=== PATIENT | female | born 1965 | race Caucasian/White ===

== ENCOUNTER 2018-07-07 05:59 | Inpatient (IN) | payer OTHER, SELFPAY ==
[2018-06-23 11:03] VITALS: BMI 39.9
[2018-06-23 12:45] VITALS: BMI 39.9
[2018-07-07] VITALS (13 sets, daily range): BP systolic 94–153; BP diastolic 45–93; PULSE 70–88; RESP 13–20; TEMP 35.6–36.9; O2SAT 96–100; BMI 39.9
--- NOTE | 2018-07-07 06:00 | DI.RAD.S_ITS ---
PROCEDURE: XR KNEE LT 1TO2V INDICATIONS: post-op TECHNIQUE: 2 view(s) of the knee acquired. COMPARISON: [facility], CR, XR KNEE ARTHRITIC SERIES BI, 06/16/2017, 14:23. CR, KNEE 1 OR 2VW (RT), 06/14/2008, 15:04. [facility], MR VISIONAIRNathalia LT KNEE, 06/05/2018, 7:17. FINDINGS: Bones: Patient is status post knee joint arthroplasty. Hardware components are in expected positions. Visualized bony structures are demonstrates small area of irregular lucency along the distal lateral aspect of the medial femoral condyle. Soft tissues: Overlying postoperative changes are noted. IMPRESSION: Postsurgical changes as above. Irregular lucency along the medial femoral condyle as above. Small area of avulsion cannot be excluded. Dictated by: Jen Preciado M.D. on 07/07/2018 at 15:45 Approved by: Jen Preciado M.D. on 07/07/2018 at 15:53
[2018-07-07] MEDS: LACTATED RINGERS 1,000 ML 42 ML IV ×3 (06:55→10:34)
[2018-07-07] MEDS: CELECOXIB 200 MG CAPSULE PO (07:00)
[2018-07-07] MEDS: PREGABALIN 75 MG CAPSULE PO (07:00)
[2018-07-07] MEDS: ACETAMINOPHEN 325 MG TABLET 975 MG PO ×2 (07:00→13:58)
[2018-07-07] MEDS: VANCOMYCIN 1,000 MG/200 ML FROZ.PIGGY 200 MG IV (07:01)
--- NOTE | 2018-07-07 07:58 | PM.PREOP ---
Pre-operative Note Interval Note Pre-op Check: Yes History & Physical Reviewed by Physician and Yes Exam Performed Changes: No
--- NOTE | 2018-07-07 08:00 | P.OP_ITS ---
Operative Date/Time/Diagnoses Date of procedure: 07/07/18 Time of procedure: 09:58 Pre-op diagnosis: left knee OA Post-op diagnosis: same Procedure & Clinicians Procedure: left total knee replacement Same procedure as scheduled: Yes Indications: The patient has had progressively worsening left knee pain with radiographic changes consistent with arthritis. Non-operative management has failed and the patient has requested total knee replacement. The risks, benefits and alternatives to surgery were discussed with the patient prior to proceeding. Risks discussed included, but were not limited to, failure to relieve pain, stiffness, infection, nerve damage, deep venous thrombosis, pulmonary embolism, stroke, coma, heart attack, permanent paralysis and , as well as the potential need for eventual revision of the prosthetic. Surgeon: Dafne Zuniga Cigar Packer And Shader: Suellen Covarrubias Anesthesia Type: Spinal and Peripheral nerve block Operative Notes Findings: Severe left knee osteoarthritis, acceptable alignment and good stability Closure Type: primary Specimen(s): none sent Implants & Drains: nayla BCS2 femur 3, tibia 3, +10, 32x9 Applied: drain(s) Estimated Blood Loss (mL): 200 Blood products transfused: none Tourniquet time (min): 89 Procedure in detail: The patient was seen in the pre-operative area, where the patient identified the left knee as the operative site and this was marked with my initials. The patient received pre-operative antibiotics, and was taken to the operating room and placed on the operative table in the supine position. After satisfactory anesthesia, a time study statistician out was performed. The left leg was encircled with a tourniquet about the proximal thigh, and the leg was prepared from the toes to the tourniquet with ChloroPrep in the usual fashion and draped through sterile drapes. The leg was elevated and exsanguinated with Eschmark bandage and the tourniquet inflated to [250] mmHg pressure. The knee was approached through an approximately 18 cm incision centered over the patella and carried into the knee through a medial parapatellar arthrotomy. A portion of the medial and lateral meniscus was resected. Soft tissue was carefully mobilized around the patella the patella was measured with a caliper. Bone was resected from the patella and the patellar height was reconstituted with up an appropriate sized patellar component. A cover was then placed on the patella. A small amount of additional medial and lateral meniscus was resected. The visionare guide fit well to the distal femur. It looked like an appropriate distal femoral cut and the cut was made without difficulty. The rotation was assessed and the appropriate size femoral guide was placed on the distal femur and finishing cuts were made. There was no evidence of notching. The anterior, posterior and chamfer cuts were then made. The posterior osteophytes and soft tissues were then removed. The posterior capsule was injected with part of a mixture of 60 ml 0.25% Marcaine mixed with 20 ml Exparel for post operative pain control. The remainder of this mixture was injected into the capsule and subcutaneous tissues during cement curing. The tibia was prepared and the visionaire guide fit well to the distal tibia. The rotation was assessed. The patient was placed in extension residual medial and lateral meniscus as well as any residual bone was carefully resected. No additional tibia was resected. Hemostasis was achieved especially posteriorly. Additional local was injected into the posterior capsule. The extension gap was assessed and additional releases for gap balancing were performed as necessary. It was checked with the gap airborne and air delivery specialist. The femoral component was trial was placed and the notch was finished. Trial tibial and femoral components were then placed and the knee placed through a range of motion. Range of motion was [ 0-130], with good stability throughout the range. The trials were then removed, and the tibia was finished. The bone was prepared with pulsatile lavage, and dried with a sponge. Cement was applied and the final prosthetics placed. Excess cement was removed during and after cement curing. A brief Betadine soak was performed. After confirming there was no extruded cement posteriorly, the final tibial insert was placed. The knee was copiously irrigated and the tourniquet deflated. Hemostasis was obtained with the [Aquamantys system]. A drain was placed and brought out superolaterally. The capsule was closed with interrupted nonabsorbable sutures. The subcutaneous layer was closed with barbed sutures, and the skin with a running 3 -0 V-Lock suture and Surgical glue. An silvia dressing was applied and the patient was taken to recovery having tolerated the procedure well. Complications: none Condition: stable Disposition: Acute Care Plan for aftercare: The patient will be maintained on a standard total knee replacement protocol with weight bearing as tolerated. The patient will receive aspirin and sequential compression devices for DVT prophylaxis. The patient will be discharged home when safe for the home environment.
[2018-07-07] MEDS: MIDAZOLAM 2 MG/2 ML VIAL IV (08:05)
[2018-07-07] MEDS: fentaNYL 100 MCG/2 ML INJ IV (08:05)
[2018-07-07] MEDS: CEFAZOLIN 2 GM/100 ML FROZ.PIGGY IV ×3 (08:15→23:21)
--- NOTE | 2018-07-07 08:15 | SUR.PREOP ---
Block start time 0805[] . Monitoring initiated and maintained throughout procedure. Oxygen and medications given per anesthesiologist instructions. Patient remained stable throughout procedure, no adverse reactions noted. Block end time [0810].
--- NOTE | 2018-07-07 08:54 | SUR.OPER ---
Supine on padded OR bed. Pillow under head, arms secured on padded armboards <90 degree abduction. Safety belt across torso. Non-operative leg secured with tape over blanket over lower leg. Operative leg secured in DeMayo/David positioner. Foam padded brace at thigh of operative leg.
[2018-07-07] MEDS: BUPIVACAINE LIPOSOME 266 MG/20 ML VIAL INJ (09:13)
[2018-07-07] MEDS: POVIDONE-IODINE 15 ML, SODIUM CHLORIDE 0.9% 250 ML TOP (09:13)
[2018-07-07] MEDS: BUPIVACAINE 0.25% W/ EPI VIAL 60 ML INJ (09:14)
[2018-07-07] MEDS: TRANEXAMIC ACID 1,000 MG VIAL 1000 MG INJ (09:15)
[2018-07-07] MEDS: LACTATED RINGERS 1,000 ML 125 ML IV ×2 (12:24→21:29)
[2018-07-07] MEDS: OXYCODONE IR 5 MG TABLET PO (13:07)
[2018-07-07] MEDS: IBUPROFEN 600 MG TABLET PO ×2 (13:51→23:21)
[2018-07-07] MEDS: HYDROMORPHONE 2 MG TABLET 4 MG PO ×2 (14:53→18:20)
--- NOTE | 2018-07-07 15:08 | PC.NURSE ---
Day Shift- Rec'd report from MONIKA Yip in PACU at 1115. Pt arrived to unit at 1125 via bed. A&OX4, numbness to LE, able to slightly wiggle toes. Starting at 1310, pain increased rapidly from 0/10 to 7-8/10 and teary. Oxycodone prn at 1310, pt states with her last surgery the combination of Oxycodone and Ibuprofen was effective pain management. Therefore Ibuprofen given at 1350 along with scheduled Tylenol. Received call from Crystal Covarrubias at 1440 for Dilaudid 2-4mg prn order. Dilaudid 4mg po prn given at 1450. Pt repositioned several times, ice pack to left knee rotating. LLE on/off pillow kept below knee. Dalton at bedside throughout post op period.
--- NOTE | 2018-07-07 15:50 | PT.IIE ---
Current Diagnoses Unilateral primary osteoarthritis, left knee (07/07/18) Surgery Performed Operation Date: 07/07/18 07:45 Actual Procedures p Total Knee Arthroplasty(Left) - Dafne Zuniga MD Surgical History (Last Updated 06/23/18 @ 11:14 by Lanny Bueno, RN) History of arthroplasty of right knee (Acute) History of delivery (Acute) Hx of tonsillectomy (Acute) Medical History (Last Updated 06/23/18 @ 11:14 by Lanny Bueno RN) Anxiety (Acute) GERD (gastroesophageal reflux disease) (Acute) Osteoarthritis (Acute) Physical Therapy Inpatient Evaluation/Re-Eval M1 PT/OT-IP Prior Functional Status Start: 07/07/18 16:44 Freq: NEEDED Status: Active Protocol: Document 07/07/18 15:50 AB (Rec: 07/07/18 16:57 AB [id number]) Medical Review Prior Functional Status Medical History Reviewed Yes Communication able to make needs known Mobility and Gait pt stated that she is independent with all mobilities and ambulation without AD Social History Household Members spouse children Living Arrangements House Number of Floors (Floors) One Floor Number of Stairs To Enter/Railing? 1 step entry Home Environment Standard Height Toilet Tub/Shower Home Equipment Front Wheel Walker Four Wheel Walker Straight Cane Employment Status Unknown Additional Social History Comment stated that spouse and son will be able to assist her at night and sister and parents will be able to assist pt when spouse/son are not around. M2 PT-IP Current Condition Start: 07/07/18 16:44 Freq: NEEDED Status: Active Protocol: Document 07/07/18 15:50 AB (Rec: 07/07/18 16:57 AB [id number]) Physical Therapy Current Condition Current Condition Evaluation Date 07/07/18 Treatment Diagnosis s/p L TKA Onset Date 07/07/18 Weight Bearing Status Weight Bearing Status Weight Bear as Tolerated M3 PT-IP Subjective Start: 07/07/18 16:44 Freq: NEEDED Status: Active Protocol: Document 07/07/18 15:50 AB (Rec: 07/07/18 16:57 AB [id number]) Subjective Physical Therapy Visit Type Type Initial Evaluation Visit Start Time 15:50 Visit Stop Time 16:35 Total Visit Minutes 45 Number of HR COORDINATOR Visits 0 Physical Therapy Visit Comments Patient Comments pt requesting to use the toilet Therapy Pain Assessment Pain When Pain Assessed At Rest Pain Present Pain Present Pain Reported Location Left Knee Intensity 7 Scale Used Numeric (1 - 10) Pain Management Techniques Apply Cold Re-positioning Timing of Activity with Medications M4 PT-IP Mobility and Gait Start: 07/07/18 16:44 Freq: NEEDED Status: Active Protocol: Document 07/07/18 15:50 AB (Rec: 07/07/18 16:57 AB [id number]) PT-Bed Mobility Assessment Supine to Sit Supine to Sit Standby Assistance Scooting Scooting to Edge of Bed Standby Assistance PT-Transfer Assessment Sit to and From Stand Sit to and from Stand Minimal Assistance Equipment Transfer Assistive Device Gait Belt Front Wheeled Walker Orthotic/Prosthetic Devices or Brace: No Transfers Transfer Destination Chair Toilet Transfer Technique pt ambulated to the toilet and then to the chair using FWW min A and cues Gait Assessment Gait Gait Assistance Required: Minimum Assistance Distance (Feet) 12 Able to Maintain Weight Bearing Status Yes During Gait Assistive Devices Assistive Device Gait Belt Front Wheeled Walker Orthotic/Prosthetic Devices or Brace: No Gait Deviations General Gait Pattern Antalgic Decreased Stride Length Decreased Feet Clearance Factors Limiting Gait Function Factors Limiting Gait Function Decreased Activity Tolerance Decreased Strength Limited Range of Motion Pain Poor Balance Comments Gait Comments pt with initial slight buckling on L knee but pt able to control with cues for techniques and safety. supine BP prior to tx: 137/77 c/o nausea and cold sweats after ambulation to the toilet : BP: 103/73 pt ambulated from the toilet to the chair using FWW ~ 10 ft min A and cues. pt set up on chair. ice pack provided. call light and table placed within reach. BP: 133/73 nurse aware. PT-Balance Assessment Sitting Balance and Reactions Static Sitting Balance Ability Good Dynamic Sitting Balance Ability Good Standing Balance and Reactions Static Standing Balance Ability Fair Dynamic Standing Balance Ability Fair Device Used FWW M5 PT-IP Objective Assessments Start: 07/07/18 16:44 Freq: NEEDED Status: Active Protocol: Document 07/07/18 15:50 AB (Rec: 07/07/18 16:57 AB [id number]) Orientation Orientation/Cognition Level of Alertness Alert Orientation Name Age Birthday Month Date Year Day of Week Place Situation Safety Awareness Decreased Safety Awareness Comments pt is slightly drowsy and may take increase time to answer questions Gross Range of Motion Lower Extremity ROM Assessment Left Impaired Impairments PROM: 30 deg with pain limitied ROM Strength Lower Extremity Strength Assessment Left Impaired Knee 3+/5 M6 PT-IP Treatment Start: 07/07/18 16:44 Freq: NEEDED Status: Active Protocol: Document 07/07/18 15:50 AB (Rec: 07/07/18 16:57 AB [id number]) Physical Therapy Treatment Education Education Provided Precautions Weight Bearing Status Post-Op Packet Safety M7 PT-IP Assessment and Plan Start: 07/07/18 16:44 Freq: NEEDED Status: Active Protocol: Document 07/07/18 15:50 AB (Rec: 07/07/18 16:57 AB [id number]) PT Summary Assessment and Plan Potential Rehabilitation Potential Good Status of Condition at Evaluation Evolving Summary Impairments Pain ROM Strength Balance Cognition Bed Mobility Transfers Gait Activity Tolerance Assessment Summary pt requiring min A with ambulation using FWW. pt plans to go home with family to assist her. will continue to assess but pt will likely improve during hospital stay. stair climbing training also will be conducted prior to d/c . pt stated that she has outpt PT set up. Goals Bed Mobility Goal Independent Transfer Goal Standby Assistance Gait Goal Standby Assistance Gait Distance 150 Other Goals up/down 1 step SBA using FWW Days to Meet Goals 3 Frequency of Treatment Frequency Of Treatment Twice a Day Treatment Plan Physical Therapy Treatment Plan Bed Mobility Training Transfer Training Gait Training Therapeutic Exercise Balance Retraining Post Op Education Discharge Planning Hot or Cold Pack Neuromuscular Re-ed Coordination Retraining Manual Therapy Other Recommendations and Next Treatment ambulation, stair climbing, Focus caregiver training Recommendations To Nursing Amount of Assist Needed 1 Person Assist Discharge Recommendations PT Discharge Recommendations Home with Assistance Outpatient PT
[2018-07-07] MEDS: DOCUSATE 100 MG CAPSULE PO (20:29)
[2018-07-07] MEDS: ASPIRIN EC 81 MG TABLET PO (20:29)
--- NOTE | 2018-07-07 21:00 | PC.NURSE ---
1600: Pt reports pain decreasing after medicated on dayshift. Agreeable to work with P.T. Pt up to BR, had dizziness, systolic BP 103 with previous being 130. Resolved and pt back to chair with P.T. and RN present. 182: Pain 4-5/10, medicated w/4mg PO dilaudid. Pt felt nausea about 30 minutes after admin, no emesis. 1999: Pt reports no pain. Dr Zuniga in to see pt. Pt did get nausea/emesis after transfer from chair to bed. Immediately resolved and declines offer for anti emetic.
[2018-07-07] MEDS: HYDROMORPHONE 2 MG TABLET PO ×2 (21:32→23:58)
[2018-07-07] MEDS: ONDANSETRON 4 MG/2 ML INJ IV (21:37)
[2018-07-08 00:05] VITALS: BP 145/46; PULSE 78; RESP 18; TEMP 36.3; O2SAT 100
[2018-07-08] MEDS: LACTATED RINGERS 1,000 ML 125 ML IV (05:43)
[2018-07-08] MEDS: HYDROMORPHONE 2 MG TABLET 4 MG PO (05:43)
[2018-07-08 06:03] LABS: Hematocrit 37.6 % (36-46); Hemoglobin 12.7 g/dL (12.0-16.0)
[2018-07-08 06:07] VITALS: BP 141/78; PULSE 76; RESP 16; TEMP 36.7; O2SAT 99
[2018-07-08 08:00] VITALS: BP 139/73; PULSE 75; RESP 18; TEMP 36.6; O2SAT 95
[2018-07-08] MEDS: DOCUSATE 100 MG CAPSULE PO (08:39)
[2018-07-08] MEDS: ACETAMINOPHEN 325 MG TABLET 975 MG PO (08:39)
[2018-07-08] MEDS: ASPIRIN EC 81 MG TABLET PO (08:39)
--- NOTE | 2018-07-08 09:28 | PT.IPTN ---
Addendum entered and electronically signed by Laura Jennings PT 07/08/18 16:49: This is to certify that this PT has reviewed this documentation and plan of care. Original Note: Current Diagnoses Unilateral primary osteoarthritis, left knee (07/07/18) Surgery Performed Operation Date: 07/07/18 07:45 Actual Procedures p Total Knee Arthroplasty(Left) - Dafne Zuniga MD Physical Therapy Treatment Note M2 PT-IP Current Condition Start: 07/07/18 16:44 Freq: NEEDED Status: Discharge Protocol: Document 07/07/18 15:50 AB (Rec: 07/07/18 16:57 AB [id number]) Physical Therapy Current Condition Current Condition Evaluation Date 07/07/18 Treatment Diagnosis s/p L TKA Onset Date 07/07/18 Weight Bearing Status Weight Bearing Status Weight Bear as Tolerated M3 PT-IP Subjective Start: 07/07/18 16:44 Freq: NEEDED Status: Discharge Protocol: Document 07/08/18 09:28 (Rec: 07/08/18 15:10 [id number]) Subjective Physical Therapy Visit Type Type Treatment Note Visit Start Time 09:28 Visit Stop Time 10:11 Total Visit Minutes 43 Number of PHYSICAL MEDICINE SPECIALIST Visits 0 Physical Therapy Visit Comments Patient Comments Pt feeling much better than yesterday in regards to pain. She is agreeable to stair training and increasing walking. Therapy Pain Assessment Pain When Pain Assessed During Mobility Pain Present Pain Present Pain Reported Location Left Knee Intensity 4 Scale Used 0/10 at rest. increases to 4/ 10 after mob. Pain Management Techniques Apply Cold Elevation Re-positioning Timing of Activity with Medications M4 PT-IP Mobility and Gait Start: 07/07/18 16:44 Freq: NEEDED Status: Discharge Protocol: Document 07/08/18 09:28 (Rec: 07/08/18 15:10 [id number]) PT-Bed Mobility Assessment Supine to Sit Supine to Sit Standby Assistance Sit to Supine Sit to Supine Standby Assistance Scooting Scooting to Edge of Bed Standby Assistance PT-Transfer Assessment Sit to and From Stand Sit to and from Stand Standby Assistance Equipment Transfer Assistive Device Gait Belt Front Wheeled Walker Orthotic/Prosthetic Devices or Brace: No Transfers Transfer Destination Chair Comments Mobility Comments Pt requiring max cues to remind to avoid using FWW for UE assist to sit <> stand. She required grab bar on L to sit <> stand from toilet. She reports feeling a little dizzy with standing at EOB. However, VSS were WNL and symptoms subsided within 2 mins prior to continuing to ambulation. Gait Assessment Gait Gait Assistance Required: Standby Assistance Distance (Feet) 130 Able to Maintain Weight Bearing Status Yes During Gait Assistive Devices Assistive Device Gait Belt Front Wheeled Walker Orthotic/Prosthetic Devices or Brace: No Gait Deviations General Gait Pattern Antalgic Decreased Stride Length Decreased Feet Clearance Step-to Gait Factors Limiting Gait Function Factors Limiting Gait Function Decreased Activity Tolerance Decreased Strength Limited Range of Motion Pain Poor Balance Poor Safety Awareness Comments Gait Comments Pt continues to need min to mod cuing to engage quadriceps during stance on LLE to avoid buckling. C/o hot flashes during ambulation. w/c follow was used for safety. Pt amb ~130 ft using fww and SBA toward stairs +10 ft to/ from stairs and +30 ft in room . BP post treatment 149/79. Stair Climbing Assessment Evaluation Level of Assist On Stairs Minimal Assistance Devices Stair Climbing Assistive Devices Front Wheel Walker Technique/Endurance Stair Climbing Direction Ascend and Descend Stair Climbing Technique Step to Step Number of Steps Climbed 1 Query Text: Stair Climbing Set # Repetitions (reps) 2 Comments Stair Climbing Comments Performed platform step X2. pt required mod cues for foot placement and reminders to engage LLE fully when required to shift weight to L side. PT-Balance Assessment Sitting Balance and Reactions Static Sitting Balance Ability Good Dynamic Sitting Balance Ability Good Standing Balance and Reactions Static Standing Balance Ability Fair Dynamic Standing Balance Ability Fair Device Used Fww M5 PT-IP Objective Assessments Start: 07/07/18 16:44 Freq: NEEDED Status: Discharge Protocol: Document 07/08/18 09:28 (Rec: 07/08/18 15:10 [id number]) Orientation Orientation/Cognition Level of Alertness Alert Safety Awareness Decreased Safety Awareness M6 PT-IP Treatment Start: 07/07/18 16:44 Freq: NEEDED Status: Discharge Protocol: Document 07/07/18 15:50 AB (Rec: 07/07/18 16:57 AB [id number]) Physical Therapy Treatment Education Education Provided Precautions Weight Bearing Status Post-Op Packet Safety M7 PT-IP Assessment and Plan Start: 07/07/18 16:44 Freq: NEEDED Status: Discharge Protocol: Document 07/08/18 09:28 (Rec: 07/08/18 15:10 [id number]) PT Summary Assessment and Plan Potential Rehabilitation Potential Good Status of Condition at Evaluation Stable Summary Impairments Pain ROM Strength Balance Coordination Bed Mobility Transfers Gait Activity Tolerance Assessment Summary Pt s/p LTKA and difficulty with gait. She amb total 130ft today using Fww and SBA and completed 1 step up/down minAx1. Primary impairments at this time are decreased gait speed and distance as well as decreased strength and control of LLE needed to ascend/descend 1 step as needed for safe home access. Pt left in recliner with legs elevated with call light in reach. Recommend d/c to home with 24 hr assist and f/u OP PT to continue with post op L total knee rehab. Goals Bed Mobility Goal Standby Assistance Transfer Goal Standby Assistance Front Wheeled Walker Gait Goal Standby Assistance Front Wheel Walker Gait Distance 150 Other Goals up/down 1 platform step using fww and SBA Days to Meet Goals 2 Frequency of Treatment Frequency Of Treatment Twice a Day Treatment Plan Physical Therapy Treatment Plan Bed Mobility Training Transfer Training Gait Training Therapeutic Exercise Balance Retraining Post Op Education Discharge Planning Hot or Cold Pack Neuromuscular Re-ed Coordination Retraining Manual Therapy Other Recommendations and Next Treatment Continue with gait training Focus and stair climbing. Caregiver training. Recommendations To Nursing Amount of Assist Needed 1 Person Assist Discharge Recommendations PT Discharge Recommendations Home with 24/7 Assist Outpatient PT
--- NOTE | 2018-07-08 10:01 | PM.DS.1 ---
History of Present Illness Date Patient Seen: 07/08/18 Time Patient Seen: 10:01 Chief complaint: 73137 LEFT TOTAL KNEE ARTHROPLASTY Narrative: Patient pain currently is moderate. Patient's pain has been severe. Currently treating with Dilaudid. She does feel better pain control with the Dilaudid. Denies fever chills. Otherwise without complaints. She does wish to go home today as safe to do so. Discharge Providers Date of admission: 07/07/18 05:59 Primary care physician: Rick Lin MD Consults: 07/07/18 06:00 Consult to Anesthesiology Routine Comment: Consulting Provider: Anesthesiologist Reason for consultation: Regional block for post operative pain control 07/07/18 11:30 Consult to Discharge Planning Routine Comment: Consult to Physical Therapy Evaluate & Treat Comment: Physician Instructions: postop TKA protocol Consult to Respiratory Therapy Evaluate & Treat Comment: Physician Instructions: Evaluate and treat Discharge provider: Wolfgang Uribe PA-C Discharge Date: 07/08/18 Summary Discharge Diagnosis: Status post left total knee arthroplasty Hospital Course: Patient admitted for left total knee arthroplasty. Patient failed conservative outpatient treatment. Patient consented to the same. Patient taken to the operating room underwent left total knee arthroplasty. Patient back in her room recovering well and is in stable condition. Patient received spinal and peripheral nerve block. 200 cc blood loss. Patient working with physical therapy walking down the garces today. Will be discharged home today in stable condition. Exam Vital Signs (past 8 hours): - 07/08/18 06:07 07/08/18 08:00 Temperature 98.1 F 97.9 F Pulse Rate 76 75 Respiratory Rate 16 18 Blood Pressure 141/78 H 139/73 Pulse Oximetry 99 95 Oxygen Delivery Method Room Air Oxygen Flow Rate 0 Narrative Exam Narrative: Patient in no apparent distress walking down the garces with physical therapy. Po dressing clean, dry and intact. Objective Labs Result Diagrams: 07/08/18 05:31 Labs: Laboratory Results - last 24 hr 07/08/18 05:31 Hgb 12.7 Hct 37.6 Discharge Plan Discharge Plan Patient Disposition: Home Discharge comment: DC home today Discharge Med Rec/Prescriptions Prescriptions: New hydromorphone 2 mg Tablet 2 mg PO Q3H PRN (Reason: Pain, Moderate (4-6)) Qty: 30 RF: 0 Continue omeprazole 20 mg Capsule,Delayed Release(Dr/Ec) 20 mg PO DAILY PRN (Reason: Heartburn) RF: 0 Discontinued ibuprofen [Advil] 200 mg Tablet 4 tab PO DAILY PRN (Reason: pain) RF: 0 Follow up/Referrals: Rick Lin MD [Primary Care Provider] - Dafne Zuniga MD [Physician] - 1 Week Provider Discharge Instructions Diet: Diet as Tolerated Activity: WBAT Cold/Heat Therapy: Ice as needed Other treatments: Aspirin 81 mg twice daily, Mobic 1 tab daily with food. Tylenol 1000 mg 3 times daily. This trial as needed. Patient discharged with prescription for Dilaudid 2 mg. She does have oxycodone prescription at home to use once pain subsides. Discharge Data Primary Care Provider: Rick Lin Attending Provider: Dafne Zuniga Admit Date/Time: 07/07/18 05:59 Quality VTE Deep Vein Thrombosis/Pulmonary Embolism Present on Admission: No
--- NOTE | 2018-07-08 10:06 | CM.DANOTE ---
Discharge Planning/Care Management DCP: assessment: case received, discussed with PT Laura and then met with pt. Introduced self and role. Pt is a 53 year old female who admitted yesterday for a planned L TKA (had R TKA done several years ago). Surgeon: Dr. Olga Zuniga Payer: Tay Flores PCP: Dr. Lin Pt will be working again with PT today, she confirms her will be here for some caregiver training. She does note that thus far the knee if quite painful. P: home when stable for same with family support. At this point the ortho PA has put in a d/c order. CM Discharge Assessment Start: 07/08/18 10:04 Freq: Status: Active Protocol: Document 07/08/18 10:04 ITV (Rec: 07/08/18 10:05 ITV [id number]) Discharge Planning Assessment Advance Directives? No History Provided By Patient Prior Living Arrangements House Household Members spouse children Document 07/08/18 10:05 ITV (Rec: 07/08/18 10:05 [email or web address] [id number]) Discharge Planning Assessment Advance Directives? No History Provided By Patient Medical Record Prior Living Arrangements House Household Members spouse children Independent with ADL's Yes Is patient alert and oriented? Yes Whiteboard Updated in Patient Room with Yes name and ext. # of Legal Receptionist Review Status In Process Next Review Type Continued Stay Review Pre-Anesthesia Assessment Start: 06/23/18 11:03 Freq: Status: Complete Protocol: Document 06/23/18 11:03 CAB (Rec: 06/23/18 11:29 CAB [id number]) Pre-Anesthesia Assessment Patient Also Known As (MARIPOSA) Leighann Patient Information Reviewed Via Phone Assessment Assessment Completed With Patient Primary Care Provider Rick Lin Seen Specialist in Last 12 Months Yes Specialist Seen Orthopedist Other Comment Rheumatology - RA r/o out Primary Language [place] Fis[employer] Manager Required No Height 165.1 cm Weight 108.862 kg Body Mass Index (BMI) 39.9 Hearing Ability Normal Visual Assist Glasses Dentition Type Teeth, Natural Present Teeth, Broken Barriers to Learning None Hx Anesthesia Reactions No Hx Family Anesthesia Reaction No Hx Malignant Hyperthermia No Hx Blood Transfusions No Anesthesia Review Requested No Hand Salter No alcohol intake current alcohol intake frequency holidays/special occasions only Smoking Status Former smoker Tobacco type cigarettes how long ago did patient quit smoking Quit age [age] x 2 years Substance Use Type does not use Pain Present Pain Reported Musculoskeletal Symptoms Abnormal Gait Difficulty Walking Joint Pain Limited Range of Motion Muscle Weakness History of Falling (Recent or History of No ) Patient is completely paralyzed or No completely immobile Mental Status Oriented to own ability Is patient on oxygen? No Does patient have FORD/SOB No Hx Sleep Apnea No Currently Taking a Beta Indra No Can You Climb a Flight of Stairs Without Yes SOB Hx Chest Pain No Hx SOB No Hx Syncope or Dizziness No Anti-Coagulant Therapy No Has a Patient Manager No Cardiac Testing No Hx Pacemaker/ICD No Pacemaker Rep Required? No Cardiac Clearance Received Not Applicable Diet Type At Home Regular dysphagia No Genitourinary Symptoms Oliguria Bladder Pattern Incontinent, Stress Urgency Urinary Catheter Present No Hx Urinary Self Catheterization No Diabetes No Patient No Lactating No Hx Drug Resistant Organism No Presence of External or Internal Medical Yes Devices Comment Right knee prosthesis Have you traveled outside the [facility] in the last 30 days? Marital Status Lives With spouse children Prior Living Arrangements House Number of Floors (Floors) One Floor Number of Stairs To Enter/Railing? 1 step, no railing Support System Child/Children Spouse Does the Patient Have Assistance After Yes Surgery Patient Discharge Plan Description Return Home Comment Pt advised possible same day discharge per Dr. Zuniga Feels Safe in Current Environment Yes Been Physically Hurt or Threatened By a No Person in Current Environment Do you have thoughts of harming yourself None or others? Are you currently considering suicide? No Do you have a plan to hurt yourself or No Plan others? Do You Have Any Spiritual Beliefs That No May Affect Your HC Choices? Do You Have Any Cultural Practices That No May Affect Your HC Choices? Spiritual Referral None Comment Gary Who Can We Speak to About Patient's Care Family, friends Identifying Code for Release of Patient Declines to issue Information Health Care Proxy/Next of Kin Dalton () Health Care Proxy Emergency Contact Name Dalton () Emergency Contact Advance Directives? No: declines further information Power of Bed Teacher No PAC Instructions Do not shave/clip surgical site Durable medical equipment Medications to take/avoid Nasal antibiotic No ETOH/petroleum product on skin DOS NPO Post-op transportation Pre-surgical wash Sturdy shoes/comfortable clothes Do not bring valuables and remove jewelry Document 06/23/18 12:45 CAB (Rec: 06/23/18 12:45 [facility] [id number]) Pre-Anesthesia Assessment Patient Also Known As [place] (AKA) Patient Information Reviewed Via Phone Assessment Assessment Completed With Patient Lab Results BMP/CMP CBC Urinalysis Primary Care Provider Rick Lin Seen Specialist in Last 12 Months Yes Specialist Seen Orthopedist Other Comment Rheumatology - RA r/o out Primary Language [place] Fisheries Manager Required No Height 165.1 cm Weight 108.862 kg Body Mass Index (BMI) 39.9 Hearing Ability Normal Visual Assist Glasses Dentition Type Teeth, Natural Present Teeth, Broken Barriers to Learning None Hx Anesthesia Reactions No Hx Family Anesthesia Reaction No Hx Malignant Hyperthermia No Hx Blood Transfusions No Anesthesia Review Requested No Hand Salter No alcohol intake current alcohol intake frequency holidays/special occasions only Smoking Status Former smoker Tobacco type cigarettes how long ago did patient quit smoking Quit age [age] x 2 years Substance Use Type does not use Pain Present Pain Reported Musculoskeletal Symptoms Abnormal Gait Difficulty Walking Joint Pain Limited Range of Motion Muscle Weakness History of Falling (Recent or History of No ) Patient is completely paralyzed or No completely immobile Mental Status Oriented to own ability Is patient on oxygen? No Does patient have FORD/SOB No Hx Sleep Apnea No Currently Taking a Beta Indra No Can You Climb a Flight of Stairs Without Yes SOB Hx Chest Pain No Hx SOB No Hx Syncope or Dizziness No Anti-Coagulant Therapy No Has a Patient Manager No Cardiac Testing No Hx Pacemaker/ICD No Pacemaker Rep Required? No Cardiac Clearance Received Not Applicable Diet Type At Home Regular dysphagia No Genitourinary Symptoms Oliguria Bladder Pattern Incontinent, Stress Urgency Urinary Catheter Present No Hx Urinary Self Catheterization No Diabetes No HgbA1C 5.5 Date 06/09/18 Patient No Lactating No Hx Drug Resistant Organism No Presence of External or Internal Medical Yes Devices Comment Right knee prosthesis Have you traveled outside the [facility] in the last 30 days? Marital Status Lives With spouse children Prior Living Arrangements House Number of Floors (Floors) One Floor Number of Stairs To Enter/Railing? 1 step, no railing Support System Child/Children Spouse Does the Patient Have Assistance After Yes Surgery Patient Discharge Plan Description Return Home Comment Pt advised possible same day discharge per Dr. Zuniga Feels Safe in Current Environment Yes Been Physically Hurt or Threatened By a No Person in Current Environment Do you have thoughts of harming yourself None or others? Are you currently considering suicide? No Do you have a plan to hurt yourself or No Plan others? Do You Have Any Spiritual Beliefs That No May Affect Your HC Choices? Do You Have Any Cultural Practices That No May Affect Your HC Choices? Spiritual Referral None Comment Gary Who Can We Speak to About Patient's Care Family, friends Identifying Code for Release of Patient Declines to issue Information Health Care Proxy/Next of Kin Dalton () Health Care Proxy Emergency Contact Name Dalton () Emergency Contact Advance Directives? No: declines further information Power of Bed Teacher No PAC Instructions Do not shave/clip surgical site Durable medical equipment Medications to take/avoid Nasal antibiotic No ETOH/petroleum product on skin DOS NPO Post-op transportation Pre-surgical wash Sturdy shoes/comfortable clothes Do not bring valuables and remove jewelry
[2018-07-08] MEDS: HYDROMORPHONE 2 MG TABLET PO (11:15)
== END 2018-07-08 11:39 | disposition home or self-care (01) | DRG 470 ==
PROVIDERS: Admitting Provider Orthopaedic Surgery; PCP Internal Medicine; Visit Provider Orthopaedic Surgery
PROC: 0SRD0JZ Replacement of Left Knee Joint with Synthetic Substitute, Open Approach (ICD-10-PCS; CPT 27447; principal; 2018-07-07 07:45)
DX: M17.12 Unilateral primary osteoarthritis, left knee (principal); Z68.41 Body mass index [BMI] 40.0-44.9, adult; E66.9 Obesity, unspecified; K21.9 Gastro-esophageal reflux disease without esophagitis; M25.562 Pain in left knee
CPT/HCPCS: 36415; 64447; 73560; 85014; 85018; 97116; 97162; 97530; C1776; C9290; J0690; J2250; J2405; J2704; J3010; J3370